=== PATIENT | female | born 1980 | race Caucasian/White ===

== ENCOUNTER 2021-07-31 08:15 | Outpatient (CLI) | payer OTHER, SELFPAY ==
[2021-07-31 08:41] VITALS: BP 114/79; PULSE 80; RESP 16; TEMP 36.4; O2SAT 98; BMI 33.6
[2021-07-31 09:09] VITALS: BP 103/73; PULSE 73; RESP 16; TEMP 36.3; O2SAT 97
[2021-07-31 10:07] VITALS: BP 105/70; PULSE 71; RESP 16; TEMP 36.6; O2SAT 98
== END 2021-07-31 08:16 | disposition home or self-care (01) ==
LOC: OPS 08:19
PROVIDERS: Visit Provider Nurse Practitioner Family
DX: U07.1 COVID-19 (principal)
CPT/HCPCS: 96365